=== PATIENT | male | born 1960 | race American Indian/Alaskan Native ===

== ENCOUNTER 2016-10-31 17:12 | Emergency (ER) | payer SELFPAY ==
[2016-10-31 17:25] VITALS: BP 141/92
--- NOTE | 2016-10-31 18:23 | Emergency Department Report ---
ED Animal Bite HPI - General Chief Complaint: Animal Bite Stated Complaint: DOG BITE Time Seen by Provider: 10/31/16 18:09 Source: patient Mode of arrival: Ambulatory Limitations: No Limitations - History of Present Illness Initial Comments: PT states he was outside of his house and he was helping elderly christian ladies get items from his garage. PT states his neighbor's dogs were loose and running around the neighborhood. PT states the dogs were at the only exit to the garage. PT states he ran out of garage to scare the dogs away but the bigger of the two dogs bit his L calf. PT states he was wearing jeans. PT reports bite to post calf. PT States the police were called and the diamond blender of the dogs got citations. PT states he does not know if the dogs vaccines were utd. PT States his TD vaccine is not utd. Complaint: animal bite -: Sudden Time: 16:00 Left: Leg (L calf ) Animal: dog Animal Control Notified: Yes Description: household pet Mechanism: bite Severity scale (0 -10): 2 Context: unprovoked Associated Symptoms: bleeding. denies: discharge from wound - Related Data Patient Tetanus UTD: No Previous Rx's Medication Instructions Recorded Last Taken Type Amoxicillin/K Clav Tab [Augmentin 1 tab PO Q12HR #14 tab 10/31/16 Unknown Rx 875 mg] Ibuprofen [Motrin] 600 mg PO Q8H PRN #15 tablet 10/31/16 Unknown Rx Allergies Allergy/AdvReac Type Severity Reaction Status Date / Time No Known Allergies Allergy Unverified 10/31/16 17:21 ED Review of Systems ROS: Stated complaint: DOG BITE Other details as noted in HPI Comment: All other systems reviewed and negative Constitutional: denies: chills, fever Musculoskeletal: as per HPI Skin: as per HPI Neurological: denies: numbness, paresthesias, abnormal gait ED Past Medical Hx - Past Medical History Previous Medical History?: No - Surgical History Past Surgical History?: Yes Additional Surgical History: scolosis - Social History Smoking Status: Never Smoker Substance Use Type: None - Medications Home Medications: Home Medications Medication Instructions Recorded Confirmed Last Taken Type Amoxicillin/K Clav Tab [Augmentin 1 tab PO Q12HR #14 tab 10/31/16 Unknown Rx 875 mg] Ibuprofen [Motrin] 600 mg PO Q8H PRN #15 tablet 10/31/16 Unknown Rx ED Physical Exam - General Limitations: No Limitations General appearance: alert, in no apparent distress - Head Head exam: Present: atraumatic, normocephalic, normal inspection - Eye Eye exam: Present: normal appearance, PERRL, EOMI. Absent: conjunctival injection - ENT ENT exam: Present: normal exam, normal external ear exam - Neck Neck exam: Present: normal inspection, full ROM - Respiratory Respiratory exam: Present: normal lung sounds bilaterally. Absent: respiratory distress - Cardiovascular Cardiovascular Exam: Present: regular rate, normal rhythm - GI/Abdominal GI/Abdominal exam: Present: soft. Absent: tenderness - Extremities Exam Extremities exam: Present: full ROM, tenderness, calf tenderness. Absent: pedal edema, joint swelling - Expanded Lower Extremity Exam Left Knee exam: Present: normal inspection, full ROM Lower Leg exam: Present: tenderness, abrasion (pt has a wound from dog bite on his L calf. area ttp. no laceration or deep puncture wound noted. ), ecchymosis Neuro vascular tendon exam: Present: no vascular compromise - Back Exam Back exam: Present: normal inspection, full ROM - Neurological Exam Neurological exam: Present: alert, oriented X3 - Psychiatric Psychiatric exam: Present: normal affect, normal mood - Skin Skin exam: Present: warm, dry. Absent: intact ED Course Vital Signs 10/31/16 17:21 Temperature 98.7 F Pulse Rate 90 Respiratory 18 Rate Blood Pressure 141/92 O2 Sat by Pulse 97 Oximetry - Reevaluation(s) Reevaluation #1: 10/31/16 18:29 PT attempted to call the neighbor in order to inquire about the dog's vaccine status. PT states he could not get ahold of his neighbor. PT was offered the initiation of the rabies series, however pt declined. PT given strict instructions to Return to the ED if he finds out that the dog has not been immunized for rabies. PT verbalizes understanding. - Pulse Oximetry Interpretation Digit-Finger Initial Pulse Oximetry Readin Actions Taken: none Critical Care Time: No Critical care attestation.: If time is entered above; I have spent that time in minutes in the direct care of this critically ill patient, excluding procedure time. ED Disposition Clinical Impression: Need for Tdap vaccination Dog bite of calf Qualifiers: Encounter type: initial encounter Laterality: left Qualified Code(s): S81.852A - Open bite, left lower leg, initial encounter Disposition: TO HOME OR SELFCARE Is pt being admited?: No Does the pt Need Aspirin: No Condition: Stable Instructions: Diphtheria/Acellular Pertussis/Tetanus Booster Vaccine (Tdap) ( Injection), Animal Bite (ED) Additional Instructions: Finish all antibiotics Return to the ED if worsening pain, or you develop redness, fevers/chills or note drainage from wound. Contact your neighbor and inquire about the dog's rabies vaccine status, if the dog has not been immunized, return to the ED to initiate your series. Follow up with PCP in 3-5 days for bp recheck Prescriptions: Amoxicillin/K Clav Tab [Augmentin 875 mg] 1 tab PO Q12HR #14 tab Ibuprofen [Motrin] 600 mg PO Q8H PRN #15 tablet PRN Reason: Pain Referrals: DOLLY MENESES MD [Staff Physician] - 3-5 Days [facility] [Outside] - 3-5 Days [facility] [Outside] - 3-5 Days Time of Disposition: 18:33
[2016-10-31] MEDS ORDERED: BOOSTRIX IM ONE (18:24)
[2016-10-31] MEDS ORDERED: AUGMENTIN 875 MG PO ONE (18:24)
[2016-10-31] MEDS ORDERED: NACL 0.9% IR ONE (18:30)
[2016-10-31] MEDS ORDERED: TRIPLE ANTIBIOTIC TP ONE (18:31)
== END 2016-10-31 18:49 | disposition home or self-care (01) ==
LOC: ED 17:12
DX: S81.852A Open bite, left lower leg, initial encounter (principal); W54.0XXA Bitten by dog, initial encounter; Y93.9 Activity, unspecified; Y92.9 Unspecified place or not applicable; Y99.9 Unspecified external cause status
CPT/HCPCS: 90471; 90715; 99282; A6250

== ENCOUNTER 2016-11-06 10:51 | Emergency (ER) | payer SELFPAY ==
[2016-11-06 11:35] VITALS: BP 126/76
--- NOTE | 2016-11-06 12:38 | Emergency Department Report ---
ED Animal Bite HPI - General Chief Complaint: Animal Bite Stated Complaint: DOG BITE/RABIE SHOT Time Seen by Provider: 11/06/16 12:13 Source: patient Mode of arrival: Ambulatory Limitations: No Limitations - History of Present Illness Initial Comments: Patient comes into the ER today with follow-up for a dog bite to his left calf last Thursday which was 6 days ago. Patient comes in today because he found out that the neighbor's dog that bit him has not been vaccinated with rabies. Patient came in because he believes that he needs the rabies vaccine. Patient states that the wound is feeling much better than it was. Patient denies any body aches, arthralgias, fever. MD Complaint: animal bite - Related Data Previous Rx's Medication Instructions Recorded Last Taken Type Amoxicillin/K Clav Tab [Augmentin 1 tab PO Q12HR #14 tab 10/31/16 Unknown Rx 875 mg] Ibuprofen [Motrin] 600 mg PO Q8H PRN #15 tablet 10/31/16 Unknown Rx Amoxicillin/K Clav Tab [Augmentin 1 tab PO Q12HR #20 tab 11/06/16 Unknown Rx 875 mg] Allergies Allergy/AdvReac Type Severity Reaction Status Date / Time No Known Allergies Allergy Unverified 10/31/16 17:21 ED Review of Systems ROS: Stated complaint: DOG BITE/RABIE SHOT Other details as noted in HPI Constitutional: denies: chills, fever Eyes: denies: eye pain, eye discharge, vision change ENT: denies: ear pain, throat pain Respiratory: denies: cough, shortness of breath, wheezing Cardiovascular: denies: chest pain, palpitations Endocrine: no symptoms reported Gastrointestinal: denies: abdominal pain, nausea, diarrhea Genitourinary: denies: urgency, dysuria Musculoskeletal: denies: back pain, joint swelling, arthralgia Skin: denies: rash, lesions Neurological: denies: headache, weakness, paresthesias Psychiatric: denies: anxiety, depression Hematological/Lymphatic: denies: easy bleeding, easy bruising ED Past Medical Hx - Past Medical History Previous Medical History?: Yes Hx COPD: Yes - Surgical History Past Surgical History?: Yes Additional Surgical History: scolosis - Social History Smoking Status: Never Smoker Substance Use Type: None - Medications Home Medications: Home Medications Medication Instructions Recorded Confirmed Last Taken Type Amoxicillin/K Clav Tab [Augmentin 1 tab PO Q12HR #14 tab 10/31/16 Unknown Rx 875 mg] Ibuprofen [Motrin] 600 mg PO Q8H PRN #15 tablet 10/31/16 Unknown Rx Amoxicillin/K Clav Tab [Augmentin 1 tab PO Q12HR #20 tab 11/06/16 Unknown Rx 875 mg] ED Physical Exam - General Limitations: No Limitations General appearance: alert, in no apparent distress - Head Head exam: Present: atraumatic, normocephalic - Eye Eye exam: Present: normal appearance - ENT ENT exam: Present: mucous membranes moist - Neck Neck exam: Present: normal inspection. Absent: lymphadenopathy - Respiratory Respiratory exam: Present: normal lung sounds bilaterally. Absent: respiratory distress - Cardiovascular Cardiovascular Exam: Present: regular rate, normal rhythm, normal heart sounds. Absent: systolic murmur, diastolic murmur, rubs, gallop - GI/Abdominal GI/Abdominal exam: Present: soft, normal bowel sounds. Absent: tenderness - Rectal Rectal exam: Present: deferred - Extremities Exam Extremities exam: Present: normal inspection, full ROM, normal capillary refill , calf tenderness (slight posterior left calf tenderness in area of healing wound consistent with dog bite history. Scant amount of purulent drainage noted from wound with slight manipulation of surrounding tissue.). Absent: tenderness, pedal edema, joint swelling - Back Exam Back exam: Present: normal inspection - Neurological Exam Neurological exam: Present: alert, oriented X3, CN II-XII intact, normal gait, reflexes normal. Absent: motor sensory deficit - Psychiatric Psychiatric exam: Present: normal affect, normal mood - Skin Skin exam: Present: warm, dry, intact, normal color. Absent: rash ED Course Vital Signs 11/06/16 11:27 Temperature 98.9 F Pulse Rate 71 Respiratory 18 Rate Blood Pressure 126/76 O2 Sat by Pulse 98 Oximetry Critical care attestation.: If time is entered above; I have spent that time in minutes in the direct care of this critically ill patient, excluding procedure time. ED Disposition Clinical Impression: Dog bite of calf Disposition: DC-01 TO HOME OR SELFCARE Is pt being admited?: No Does the pt Need Aspirin: No Condition: Good Instructions: Animal Bite (ED) Prescriptions: Amoxicillin/K Clav Tab [Augmentin 875 mg] 1 tab PO Q12HR #20 tab Time of Disposition: 12:38 ED Medical Decision Making - Medical Decision Making Patient is nontoxic and hemodynamically stable. From the history of this bite, I have very low suspicion for any potential rabies infection. Patient states that the neighbor still has the dog and that the dog is acting like his normal self. Even though dog has not been vaccinated for rabies I informed patient that that does not do so remained that the dog actually has rabies. Sounds like it is more of an aggressive dog rather than rabies behavior. I will start patient on antibiotics accordingly and patient is in agreement with treatment plan.
== END 2016-11-06 12:58 | disposition home or self-care (01) ==
LOC: ED 10:51
DX: S81.852A Open bite, left lower leg, initial encounter (principal); J44.9 Chronic obstructive pulmonary disease, unspecified; W54.0XXA Bitten by dog, initial encounter; Y93.9 Activity, unspecified; Y92.9 Unspecified place or not applicable; Y99.9 Unspecified external cause status
CPT/HCPCS: 99281